=== PATIENT | male | born 1980 | race Caucasian/White ===

== ENCOUNTER 2019-01-27 14:10 | Observation (INO) ==
--- NOTE | 2019-01-27 14:24 | XRay Report ---
XR chest 1V portable CLINICAL HISTORY: Chest Pain dyspnea COMPARISON STUDY: 02/03/2013 FINDINGS: The bones soft tissues and hemidiaphragms are normal. The cardiomediastinal silhouette is n ormal. The lungs are clear. The pulmonary vasculature is normal. IMPRESSION: Negative chest. The above report was generated using voice recognition software. It may contain grammatical, syntax or spelling errors. Electronically signed by: Martín Armstrong M.D. 01/27/2019 2:23 PM
[2019-01-27 14:37] LABS: Partial Thromboplastin Ratio 1.1; Partial Thromboplastin Time 28.7 Seconds (21.0-31.0); Prothrombin Time 10.7 Seconds (9.0-12.0)
[2019-01-27 14:38] LABS: Basophils # (auto) 0.02 K/uL (0-0.2); Basophils % (auto) 0.3 %; Eosinophils # (auto) 0.17 K/uL (0-0.5); Eosinophils % (auto) 2.2 %; Hematocrit (blood only) 36.9 % (42-52); Hemoglobin 12.8 g/dL (14.0-18.0); Immature Granulocytes # (auto) 0.03 K/uL (0.00-0.02); Immature Granulocytes % (auto) 0.4 %; Lymphocytes # (auto) 2.76 K/uL (1.2-3.4); Lymphocytes % (auto) 35.5 %; Mean Corpuscular Hemoglobin 29.9 pg (25-34); Mean Corpuscular Hgb Conc 34.7 g/dL (32-36); Mean Corpuscular Volume 86.2 fL (80-100); Mean Platelet Volume 9.7 fL (7.4-10.4); Monocytes # (auto) 0.64 K/uL (0.11-0.59); Monocytes % (auto) 8.2 %; Neutrophils # (auto) 4.16 K/uL (1.4-6.5); Neutrophils % (auto) 53.4 %; Platelet Count 258 K/uL (130-400); RDW Coefficient of Variation 13.8 % (11.5-14.5); RDW Standard Deviation 43.4 fL (36.4-46.3); Red Blood Count 4.28 M/uL (4.7-6.1); White Blood Count 7.78 K/uL (4.8-10.8)
[2019-01-27 14:44] LABS: Alanine Aminotransferase 39 U/L (12-78); Albumin Level 3.6 gm/dl (3.4-5.0); Aspartate Aminotransferase 36 U/L (15-37); BUN Creatinine Ratio 8.3 (10-20); Blood Urea Nitrogen 11 mg/dl (7-18); Calcium 9.1 mg/dl (8.5-10.1); Carbon Dioxide 27 mmol/L (21-32); Chloride 105 mmol/L (98-107); Est GFR (African American) 79.3; Est GFR (Non-African American) 68.4; Glucose 111 mg/dl (70-99); Lipase 149 U/L (73-393); Potassium 3.1 mmol/L (3.5-5.1); Sodium 141 mmol/L (136-145)
[2019-01-27 14:49] LABS: Alkaline Phosphatase 52 U/L (45-117); Bilirubin,Total 0.7 mg/dl (0.2-1); Creatine Kinase 192 U/L (39-308); Creatine Kinase MB 2.1 ng/ml (0.5-3.6); Globulin 3.7 gm/dl (2.5-4.0); Total Protein 7.3 gm/dl (6.4-8.2); Troponin I < 0.015 ng/ml (0-0.045)
--- NOTE | 2019-01-27 17:58 | History & Physical Report ---
Date of Service January 27, 2019 Assessment & Plan (1) CAD (coronary artery disease): - Concern for acute coronary syndrome - Admit to telemetry for observation - Trend cardiac biomarkers, initial set was negative - EKG reviewed as above - Check 2 D echo - If negative enzymes can consider a stress test tomorrow morning. - PT/OT consulted - Cardiology consulted with history of CAD and 2 stents in the past, follows with [facility] cardiology as an outpt -Upon exam patient had somewhat of a reproducible pain with palpation over the left chest wall, during his visit in 2012 he did have similar presentation where he had rib somatic dysfunction and was treated with OMT which successfully improved his pain after a negative cardiac work-up. 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 History of Present Illness Primary Care Provider: NO PCP This is a 38 yo M with PMHx of CAD, HTN, HLD, hx of NSTEMI in 2011 s/p stents x2, and PCI where one vessel was nonamendable to PCI, obesity with BMI of 40, and current tobacco use who presents with acute onset of chest pain which began at rest. Pt reports it was substernally and left sided pain which moved down into both arms, and up into his neck on bilateral sides. He denies lightheadedness or or dizziness. Patient notes that this does feel similar to previous presentation of heart attack. He currently still smokes approximately 3-5 cigarettes a day, x3 years. Patient has had intermittent periods where he has quit. Patient denies any alcohol consumption. He does not routinely exercise. 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 Allergies Allergy/AdvReac Type Severity Reaction Status Date / Time codeine Allergy CONVULSIONS Verified 01/27/19 15:11 ketorolac Allergy CONVULSIONS Verified 01/27/19 15:11 meperidine Allergy CONVULSIONS; Verified 01/27/19 15:11 PT CAN TAKE MORPHINE Home Medications Home Medications Medication Instructions Recorded Confirmed Type aspirin 81 mg PO QAM 01/27/19 01/27/19 History atorvastatin 40 mg PO QPM 01/27/19 01/27/19 History carvedilol 25 mg PO QAM 01/27/19 01/27/19 History hydrochlorothiazide 25 mg PO QAM 01/27/19 01/27/19 History isosorbide mononitrate 30 mg PO QAM 01/27/19 01/27/19 History levothyroxine 75 mcg PO QAM 01/27/19 01/27/19 History Past Med/Surg History Medical History Tobacco use Morbid obesity with BMI of 40.0-44.9, adult HLD (hyperlipidemia) HTN (hypertension) Hx of non-ST elevation myocardial infarction (NSTEMI) CAD (coronary artery disease) Surgical History Hx of heart artery stent History of heart artery stent Family History Mother Myocardial infarction, Onset Age: 45 Social History Preferred Language: Malay Communication Ability: Effective Beef Boner Required: No Beliefs That Will Affect Care: None Current Living Situation: Family Current Living Situation Comment: and children Other Information That Helps Us Care for You: No Feels Safe at Home: Yes Safety Concerns: Feels Safe At This Time Smoking Status: Current every day smoker Tobacco Type: cigarettes ; Cigarettes Per Day: 1-4/ day ; Do You Dip or Chew Tobacco: No ; Second Hand Exposure: No ; Tobacco Cessation Education Requested by Patient: No Hx Alcohol Use: No Hx Substance Use: No Review of Systems Review of Systems: Constitutional: No fever, sweats or chills Eyes: No diplopia, no worsening or blurred vision ENT: normal hearing, no trouble swallowing Respiratory: No cough, sputum, dyspnea at rest or on exertion Cardiovascular: As per HPI Abdomen: No pain, nausea, vomiting, diarrhea or constipation Musculoskeletal: No joint pain, calf pain, swelling Neurologic: No weakness, numbness/tingling, or balance problems Psychiatric: No anxiety or depression Skin: No rash or itch Physical Exam Physical Exam: General: awake, alert, no apparent distress, obese Head: Normocephalic, atraumatic ENT: PERRL, EOMI, no pharyngeal exudate, mucous membranes moist Chest: +pain is somewhat reproducible when pressing on the left chest wall, clear to auscultation on room air, no adventitious breath sounds Cardiac: Regular rate and rhythm, no murmur, no JVD, normal peripheral pulses, good capillary refill Abdominal: NABS x 4 quadrants, soft, nontender to palpation, no rebound, guarding or tenderness Extremities: Normal inspection, no peripheral edema or erythema, calfs nontender to palpation Psych: Normal mood and affect Neuro: AAO x 3, strength intact bilaterally and related 5/5, no motor deficits, speech is clear, no peripheral sensory deficits Skin: no rash or erythema Results & Data Vital Signs (Past 12 Hours) Vital Signs Temp Pulse Pulse Resp BP BP Pulse Ox 01/27/19 17:15 84 19 96 01/27/19 17:04 97 01/27/19 16:30 72 19 97 01/27/19 16:15 65 16 165/128 H 98 01/27/19 16:00 69 18 164/108 H 97 01/27/19 15:55 80 19 98 01/27/19 15:45 72 20 168/110 H 96 01/27/19 14:45 79 17 172/120 H 92 01/27/19 14:18 36.9 C 85 23 167/118 H 96 Diagnostic Findings XR chest 1V portable CLINICAL HISTORY: Chest Pain dyspnea COMPARISON STUDY: 02/03/2013 FINDINGS: The bones soft tissues and hemidiaphragms are normal. The cardiomediastinal silhouette is normal. The lungs are clear. The pulmonary vasculature is normal. IMPRESSION: Negative chest. ECG Additional Comments: 27-JAN-2019 14:16:34 [facility]-EDSTAT ROUTINE RETRIEVAL Normal sinus rhythm T wave abnormality, consider inferior ischemia T wave abnormality, consider anterolateral ischemia Abnormal ECG When compared with ECG of 03-FEB-2013 15:51, Inverted T waves have replaced nonspecific T wave abnormality in Anterolateral leads Confirmed by Jaret Gavin ([id number]) on 01/27/2019 3:41:29 PM 25mm/s 10mm/mV 150Hz 9.0.9 12SL 241 HD REBECA: 12 Confirmed By: Jaret Gavin Damaris. rate 81 BPM PA interval 152 ms QRS duration 84 ms QT/QTc 348/404 ms P-R-T axes 36 42 -81 Code Status & VTE Plan Code Status Full Code VTE Prophylaxis Plan VTE Prophylaxis will be ordered: No Supervising Physician Co-Signing Physician Notes I personally examined the patient and verified all awad points of history and exam, discussed case, and agree with decision making with Alexys Redman PAC Feeling better now. Had tingling across his chest that radiated to his back, but also jaw and arm pain. Notes this feels very similar to his prior angina. Still smoking. Vitals noted, in general he is awake and alert pleasant no distress. HEENT normocephalic atraumatic mucous membranes moist. Breathing unlabored no accessory muscle use good effort. Skin shows no rashes no pallor or icterus. EKG noted. Chest painconcern on unstable angina. His symptoms are somewhat atypical, but he relates that it is extremely similar to his prior. He has known coronary disease, and continues to smoke. Rule out IA with serial enzymes. Ask car diology for evaluation, given his known coronary disease and symptoms that are reminiscent of his angina rather than simply proceeding to stress test. Tobacco abusecounseled on cessation Uncontrolled hypertensionnitrates for now, likely add ANNA inhibitor if ongoing elevated. Otherwise as above PG Care Time/CCT Total # of Minutes Spent Total Time Spent with Patient: Total time spent is greater than 50% in coordination of care (as documented) at patient's floor/unit and/or counseling patient:
--- NOTE | 2019-01-27 18:53 | Emergency Department Note ---
Entered by Fay Gaytan acting as a scribe for Jaret Hernandez DO History of Present Illness General Chief complaint: Chest Pain Stated complaint: chest pain Source: patient History of Present Illness Provider complaint: chest pain Onset (ago): hour(s) less than 1 Location: chest Radiation: other (right arm) Pain Consistency: + other (episode) Associated symptoms: + other (tingling in chest 2 days ago); no nausea/vomiting Treatments prior to arrival: aspirin (4 baby aspirin) and other (3 doses of Nitroglycerin) The patient is a 38 year old male who presents to the ED with complaints of an episode of chest pain that began less than 1 hour ago. The patient states he was sitting in the car, and not exerting himself when the pain started. The patient states that the pain started in his right arm and then moved into his chest shortly after. The patient states that he felt tingling in his chest 2 days ago. The patient denies nausea and vomiting. Per EMS, the patient was given 3 doses of Nitroglycerin and 4 baby aspirin en route. Home Medications Home Medications Medication Instructions Recorded Confirmed Type aspirin 81 mg PO QAM 01/27/19 01/27/19 History atorvastatin 40 mg PO QPM 01/27/19 01/27/19 History carvedilol 25 mg PO QAM 01/27/19 01/27/19 History hydrochlorothiazide 25 mg PO QAM 01/27/19 01/27/19 History isosorbide mononitrate 30 mg PO QAM 01/27/19 01/27/19 History levothyroxine 75 mcg PO QAM 01/27/19 01/27/19 History amlodipine 10 mg PO DAILY #30 tab 01/28/19 Rx lisinopril 10 mg PO DAILY #30 tab 01/28/19 Rx nitroglycerin 0.4 mg SUBLINGUAL Q5M #30 tab 01/28/19 Rx Allergies Allergy/AdvReac Type Severity Reaction Status Date / Time codeine Allergy CONVULSIONS Verified 01/27/19 15:11 ketorolac Allergy CONVULSIONS Verified 01/27/19 15:11 meperidine Allergy CONVULSIONS; Verified 01/27/19 15:11 PT CAN TAKE MORPHINE Past Med/Surg History Medical History Tobacco use Morbid obesity with BMI of 40.0-44.9, adult HLD (hyperlipidemia) HTN (hypertension) Hx of non-ST elevation myocardial infarction (NSTEMI) CAD (coronary artery disease) Surgical History Hx of heart artery stent History of heart artery stent Family History Mother Myocardial infarction, Onset Age: 45 Social History Preferred Language: Slovak Communication Ability: Effective Auto Service Dispatcher Required: No Beliefs That Will Affect Care: None marital status: Current Living Situation: Family Current Living Situation Comment: and children Feels Safe at Home: Yes Smoking Status: Current every day smoker Tobacco Type: cigarettes ; Cigarettes Per Day: 1-4/ day ; Second Hand Exposure: No ; Hx Alcohol Use: No Hx Substance Use: No Review of Systems See HPI for pertinent positives & negatives. and A total of 10 systems reviewed and were otherwise negative Physical Exam Vital Signs Vital Signs - 24 hr 01/27/19 14:18 01/27/19 14:45 01/27/19 15:45 Temperature 36.9 C Temperature Source Oral Sepsis Recent Fever Within 48 Hours No Sepsis New/Unexplained Change in Mental Status No Sepsis Action Taken by Nursing No Action Required Pulse Rate 85 Pulse Rate [Left Apical] 79 72 Pulse Rate from SpO2 Sensor Pulse Rhythm Regular Pulse Rhythm [Left Apical] Regular Regular Pulse Strength Normal Pulse Strength [Left Apical] Normal Normal Respiratory Rate 23 17 20 Respiratory Effort / Characteristics Non-Labored Spontaneous Non-Labored Spontaneous Non-Labored Spontaneous Respiratory Depth Normal Normal Normal Respiratory Pattern Regular Regular Regular Blood Pressure 167/118 H Blood Pressure [Right Arm] 172/120 H 168/110 H Blood Pressure Mean 134 Blood Pressure Mean [Right Arm] 137 129 Blood Pressure Position Lying Blood Pressure Position [Right Arm] Lying Pulse Oximetry 96 92 96 Oxygen Delivery Method Room Air Room Air Room Air 01/27/19 15:55 01/27/19 16:00 01/27/19 16:15 Temperature Temperature Source Sepsis Recent Fever Within 48 Hours Sepsis New/Unexplained Change in Mental Status Sepsis Action Taken by Nursing Pulse Rate 80 69 65 Pulse Rate [Left Apical] Pulse Rate from SpO2 Sensor 80 70 65 Pulse Rhythm Pulse Rhythm [Left Apical] Pulse Strength Pulse Strength [Left Apical] Respiratory Rate 19 18 16 Respiratory Effort / Characteristics Respiratory Depth Respiratory Pattern Blood Pressure 164/108 H 165/128 H Blood Pressure [Right Arm] Blood Pressure Mean 126 140 Blood Pressure Mean [Right Arm] Blood Pressure Position Blood Pressure Position [Right Arm] Pulse Oximetry 98 97 98 Oxygen Delivery Method 01/27/19 16:30 Temperature Temperature Source Sepsis Recent Fever Within 48 Hours Sepsis New/Unexplained Change in Mental Status Sepsis Action Taken by Nursing Pulse Rate 72 Pulse Rate [Left Apical] Pulse Rate from SpO2 Sensor 75 Pulse Rhythm Pulse Rhythm [Left Apical] Pulse Strength Pulse Strength [Left Apical] Respiratory Rate 19 Respiratory Effort / Characteristics Respiratory Depth Respiratory Pattern Blood Pressure Blood Pressure [Right Arm] Blood Pressure Mean Blood Pressure Mean [Right Arm] Blood Pressure Position Blood Pressure Position [Right Arm] Pulse Oximetry 97 Oxygen Delivery Method GENERAL: Patient is awake, alert, and very anxious appearing. Patient appears to be uncomfortable. EYES: The conjunctivae are clear. The pupils are round and reactive. EARS, NOSE, MOUTH AND THROAT: The nose is without any evidence of any deformity. Mucous membranes are moist.Tongue is midline NECK: The neck is nontender and supple. RESPIRATORY: Normal respiratory effort is noted. There is no evidence of wheezing rhonchi or rales to auscultation. CARDIOVASCULAR: Regular rate and rhythm noted. There no murmurs rubs or gallops normal S1 normal S2 GASTROINTESTINAL: The abdomen is soft. Bowel sounds are present in all quadrants. Abdomen is nontender. MUSCULOSKELETAL/EXTREMITIES: There is no evidence of gross deformity. Full range of motion is noted in the hips and shoulders. SKIN: There is no obvious evidence of any rash. There are no petechiae, pallor or cyanosis noted. NEUROLOGIC: Patient is awake alert and oriented x3. Strength is symmetric. Patellar reflexes are 2+ bilaterally. Course 1411: Past medical records reviewed. The patient was evaluated in room C9. A complete history and physical exam was performed. 1608: I reevaluated the patient and he is feeling much better. I updated him on the test results and plan for admission. 1610: I discussed the patient's case with Eveline Jacobsen [facility]. She will be accepting the patient [facility] They will evaluate the patient for further management. Consultations Consultation #1: I discussed the patient's case with AISHA Ho. She will be accepting the patient for Dr. Ayala [facility]. They will evaluate the patient for further management. Time: 16:10 Administered Medications Aspirin (Ecotrin Ectab) 81 mg PO QAM YENNIFER Stop: 02/27/19 08:59 Last Admin: 01/28/19 08:36 Dose: 81 mg Documented by: [id number] Carvedilol (Coreg) 25 mg PO [facility] Stop: 02/27/19 08:59 Last Admin: 01/28/19 08:35 Dose: 25 mg Documented by: [id number] Hydrochlorothiazide (Hctz) 25 mg PO [facility] Stop: 02/27/19 08:59 Last Admin: 01/28/19 08:37 Dose: 25 mg Documented by: [id number] Isosorbide Mononitrate (Imdur Extended Rel) 30 mg PO [facility] Stop: 02/27/19 08:59 Last Admin: 01/28/19 08:36 Dose: 30 mg Documented by: [id number] Levothyroxine Sodium (Synthroid) 75 mcg PO [facility] Stop: 02/27/19 08:59 Last Admin: 01/28/19 08:36 Dose: 75 mcg Documented by: [id number] Discontinued Medications Atorvastatin Calcium (Lipitor) 40 mg PO QPM [facility] Stop: 02/26/19 20:59 Last Admin: 01/27/19 19:49 Dose: 40 mg Documented by: [id number] Isosorbide Mononitrate (Imdur Extended Rel) 30 mg PO NOW STA Stop: 01/27/19 19:16 Last Admin: 01/27/19 19:49 Dose: 30 mg Documented by: [id number] Lisinopril (Zestril) 10 mg PO NOW ONE Stop: 01/28/19 10:43 Last Admin: 01/28/19 11:38 Dose: 10 mg Documented by: [id number] Metoprolol Tartrate (Lopressor) 5 mg IV NOW STA Stop: 01/28/19 09:58 Last Admin: 01/28/19 10:04 Dose: 5 mg Documented by: [id number] Perflutren Lipid Microsphere (Definity) 2 ml IV ONCE ONE Stop: 01/28/19 06:57 Last Admin: 01/28/19 06:57 Dose: 2 ml Documented by: [id number] Potassium Chloride (Klor-Con M10) 40 meq PO 2030 ONE Stop: 01/27/19 20:31 Last Admin: 01/27/19 21:04 Dose: 40 meq Documented by: [id number] Medical Decision Making Differential Diagnosis Differential diagnosis: Etiologies such as shingles, musculoskeletal pain, pericarditis, myocarditis, cardiac ischemia, pericardial tamponade, pneumonia, pneumothorax, pleural effusi on, hemothorax, pleurisy, aortic pathology, pulmonary embolism, intra-abdominal process, as well as others were considered. Medical Records Attestation: I reviewed the patient's medical records. Home Medications Current Medication List: was personally reviewed by me Laboratory Data Attestation: I reviewed the patient's lab results. Result diagrams: 01/28/19 04:01 01/27/19 13:45 Lab Results 01/27/19 01/27/19 01/27/19 Range/Units 13:45 13:45 13:45 WBC 7.78 (4.8-10.8) K/uL RBC 4.28 L (4.7-6.1) M/uL Hgb 12.8 L (14.0-18.0) g/dL Hct 36.9 L (42-52) % MCV 86.2 (80-100) fL MCH 29.9 (25-34) pg MCHC 34.7 (32-36) g/dL RDW Std Deviation 43.4 (36.4-46.3) fL RDW Coeff of Kylee 13.8 (11.5-14.5) % Plt Count 258 (130-400) K/uL MPV 9.7 (7.4-10.4) fL Immature Gran % (Auto) 0.4 % Neut % (Auto) 53.4 % Lymph % (Auto) 35.5 % [place] % (Auto) 8.2 % Eos % (Auto) 2.2 % Baso % (Auto) 0.3 % Immature Gran # (Auto) 0.03 H (0.00-0.02) K/uL Neut # (Auto) 4.16 (1.4-6.5) K/uL Lymph # (Auto) 2.76 (1.2-3.4) K/uL [place] # (Auto) 0.64 H (0.11-0.59) K/uL Eos # (Auto) 0.17 (0-0.5) K/uL Baso # (Auto) 0.02 (0-0.2) K/uL PT 10.7 (9.0-12.0) Seconds INR 1.0 (0.9-1.1) APTT 28.7 (21.0-31.0) Seconds PTT Ratio 1.1 Sodium 141 (136-145) mmol/L Potassium 3.1 L (3.5-5.1) mmol/L Chloride 105 (98-107) mmol/L Carbon Dioxide 27 (21-32) mmol/L Anion Gap 9.0 (3-11) BUN 11 (7-18) mg/dl Creatinine 1.32 (0.6-1.4) mg/dl Est Cr Clr Drug Dosing Not Reportable Est GFR ( Amer) 79.3 Est GFR (Non-Af Amer) 68.4 BUN/Creatinine Ratio 8.3 L (10-20) Glucose 111 H (70-99) mg/dl Calcium 9.1 (8.5-10.1) mg/dl Total Bilirubin 0.7 (0.2-1) mg/dl AST 36 (15-37) U/L ALT 39 (12-78) U/L Alkaline Phosphatase 52 (45-117) U/L Total Creatine Kinase 192 (39-308) U/L CK-MB (CK-2) 2.1 (0.5-3.6) ng/ml CK/CKMB % Calc 1.1 (0-3.0) Troponin I < 0.015 (0-0.045) ng/ml Total Protein 7.3 (6.4-8.2) gm/dl Albumin 3.6 (3.4-5.0) gm/dl Globulin 3.7 (2.5-4.0) gm/dl Albumin/Globulin Ratio 1.0 (0.9-2) Lipase 149 (73-393) U/L Imaging Data Radiologist's Impression: Radiology results as stated below per my review and the radiologist's interpretation: XR chest 1V portable CLINICAL HISTORY: Chest Pain dyspnea COMPARISON STUDY: 02/03/2013 FINDINGS: The bones soft tissues and hemidiaphragms are normal. The ca rdiomediastinal silhouette is normal. The lungs are clear. The pulmonary vasculature is normal. IMPRESSION: Negative chest. The above report was generated using voice recognition software. It may contain grammatical, syntax or spelling errors. Electronically signed by: Martín Armstrong M.D. 01/27/2019 2:23 PM ECG Data Attestation: I personally reviewed and interpreted this ECG as follows: Indication: chest pain Rate (beats per minute): 81 Rhythm: normal sinus Findings: + T-wave inversion (lateral and inferior); no PAC, no PVC, no ST elevation and no ectopy Comparison ECG Date: from (02/03/2013) Change: no significant change Blood Pressure Blood Pressure Findings: Elevated blood pressure Blood Pressure Disposition: further management by hospitalist JOEY Narrative Patient had a heart score of 4 The patient is a 38-year-old male who presented to the emergency department by ambulance for an evaluation of chest pain. The patient has an abnormal EKG which appears to be very similar to his previous however some ST segment depression could be worsened compared to his previous EKG. The patient was treated with aspirin and nitroglycerin. The patient was reevaluated multiple times. His pain slowly improved. Given the patient's history and risk factors I discussed his case with the on-call [facility] hospitalist group. They have agreed to evaluate the patient in the emergency department for further management disposition. The patient was feeling much better on subsequent reevaluation. Impression & Plan Chest pain, Abnormal EKG Discharge Plan Visit Data *Final* Discharge Date/Time: 01/27/19 18:18 Chief Complaint: Chest Pain Stated Complaint: chest pain ED Provider: Jaret Hernandez Discharge Problem: Chest pain, Abnormal EKG Patient Disposition: Admitted As Inpatient Discharge Instructions Interventions: ED Discharge Assessment Last Done: 01/27/19 18:18 Discharge Problem: Chest pain Qualifiers: Chest pain type: unspecified Qualified Code(s): R07.9 - Chest pain, unspecified The scribe's documentation has been prepared under my direction and personally reviewed by me in its entirety. I confirm that the note above accurately reflects all work, treatment, procedures, and medical decision making performed by me.
[2019-01-27] MEDS ORDERED: NITROGLYCERIN SL 0.4 MG/TAB TAB SL PRN (19:09)
[2019-01-27] MEDS ORDERED: ISOSORBIDE MONO EXTENDED REL 30 MG TABCR PO STA (19:15)
[2019-01-27] MEDS ORDERED: POTASSIUM CHLORIDE 10 MEQ TABCR PO ONE (20:30)
[2019-01-27] MEDS ORDERED: ATORVASTATIN 40 MG TAB PO SCH (21:00)
[2019-01-28 04:14] LABS: Hematocrit (blood only) 38.2 % (42-52); Hemoglobin 12.9 g/dL (14.0-18.0); Mean Corpuscular Hemoglobin 29.9 pg (25-34); Mean Corpuscular Hgb Conc 33.8 g/dL (32-36); Mean Corpuscular Volume 88.6 fL (80-100); Mean Platelet Volume 9.5 fL (7.4-10.4); Platelet Count 197 K/uL (130-400); RDW Coefficient of Variation 13.9 % (11.5-14.5); RDW Standard Deviation 45.4 fL (36.4-46.3); Red Blood Count 4.31 M/uL (4.7-6.1); White Blood Count 6.91 K/uL (4.8-10.8)
[2019-01-28 04:34] LABS: Chol HDL Ratio 6; Cholesterol 168 mg/dl (0-200); HDL Cholesterol 28 mg/dl; LDL Cholesterol Calculated 72 mg/dl; Triglycerides 341 mg/dl (0-150); Troponin I < 0.015 ng/ml (0-0.045); VLDL Cholesterol 68 mg/dl
[2019-01-28] MEDS ORDERED: PERFLUTREN LIPID MICROSPHERE (DEFINITY) IV ONE (06:56)
[2019-01-28 07:27] LABS: Estimated Average Glucose 146 mg/dl; Hemoglobin A1C 6.7 % (4.5-5.6)
--- NOTE | 2019-01-28 08:40 | Cardiology Consultation ---
Date of Consultation January 28, 2019 Assessment & Plan (1) HTN (hypertension): (2) HLD (hyperlipidemia): (3) Chest pain: Patient admitted with an episode of atypical chest pain yesterday. He reports prior history of coronary artery disease with stent placement but per cardiac catheterization at our facility in 2011 there was no evidence of significant coronary disease. He is currently chest pain free and hemodynamically stable. He is well perfused without signs of heart failure. Serial troponins undetectable and EKG without acute changes. Very low suspicion for acute coronary syndrome. Echo is pending. Recommend further risk stratification with dobutamine stress echo which can be done as an outpatient once his blood pressure is controlled. Blood pressure is uncontrolled. Recommend starting lisinopril 10 mg daily. Continue carvedilol and HCTZ. Can further adjust antihypertensives in the outpatient setting. From a cardiology standpoint OK for discharge with followup in our office in 1 week. Supervising Physician Co-Signing Physician Notes Patient was seen and examined on 01/28/2019. Agree with consultation with following additions: Right-sided chest pain that lasted for approximately 1 hour and different than what he describes prior angina. He is currently chest pain-free. No shortness of breath. He would like to go home. Exam notable for: General: No acute distress. Alert and oriented Cardiac: Regular. No murmur. Lungs: Clear to auscultation ECGs personally reviewed: ECG 01/27/2019 at 8:37 p.m.: Sinus rhythm 61 bpm. Inferior and anterior T-wave inversion. ECG 01/27/2019 at 2:16 p.m.: Sinus rhythm 81 bpm. Inferior and anterior T-wave inversion. T-wave abnormality present on 02/03/2013 ECG as well. Echo 01/28/2019: Normal LV size, wall motion, systolic function. EF 55-60%. Moderate to severe concentric LVH. No significant diastolic dysfunction. No significant valvular abnormalities. Normal RVSP. Prior cardiac catheterization report from 2011 reported no significant CAD. He initially reported that he had a stent placed here in 2011 and also prior to that in [place]. ASSESSMENT/PLAN: 1. Atypical chest pain: Right-sided chest pain that lasted 1 hour with negative cardiac enzymes, abnormal ECG which is similar to prior ECGs and without dynamic changes, and no wall motion abnormalities on echo. Symptoms not likely cardiac in etiology. We discussed stress testing however he was significantly hypertensive. Therefore, it is recommended that blood pressure be optimized and can perform outpatient stress testing when blood pressure improved. 2. Hypertension: Agree with initiation of ANNA-inhibitor. Continue carvedilol and HCTZ. Follow up closely as an outpatient with PCP. Can follow up with Cardiology in 1 week to further titrate medications as well and arrange outpatient stress testing if appropriate at that time. Currently asymptomatic. 3. Disposition: Plan of care discussed with primary service. History of Present Illness Reason for Consultation: Chest pain Attending Physician: Immanuel Castellon, DO History of Present Illness Mr. Zavala is a 38 year old male with a medical history significant for hypertension, dyslipidemia, hypothyroidism and tobacco use. Patient is a poor historian. According to him he has a history of coronary artery disease with stent placement at our facility in 2011. However upon further investigation he had a cardiac catheterization here in 2011 which showed no significant CAD. Patient also thought he had a heart catheterization in [place] prior to the one at [facility] but his does not recall this. He does not follow with cardiology as an outpatient. He was admitted yesterday with chest pain. His symptoms developed around noon while sitting in his vehicle. He describes right arm, shoulder and jaw pain, mid thoracic back pain and less significant left sided chest pain. Pain was "jagging" in nature. He had associated shortness of breath. No nausea or diaphoresis. His symptoms lasted for a total of about 45 minutes Reports that symptoms in the past that prompted cardiac catheterization were different included left side chest pressure. Serial cardiac enzymes have been undetectable. EKG without acute changes. His blood pressure has been elevated since admission and he reports is often elevated when checked at his PCP office. He was seen at the bedside and his and children are present. He is feeling well and has no acute complaints. He has not had any recurrent chest pain. No shortness of breath, orthopnea, PND or peripheral edema. No palpitations, lightheadedness, near-syncope or syncope. No abnormal bleeding. No claudication. 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 Family history: Mother with coronary artery bypass surgery in her 50s. Social history: and lives with his in time room. Six children. 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 He smokes about 4 cigarettes per day. No alcohol or illicit drug use. Allergies Allergy/AdvReac Type Severity Reaction Status Date / Time codeine Allergy CONVULSIONS Verified 01/27/19 15:11 ketorolac Allergy CONVULSIONS Verified 01/27/19 15:11 meperidine Allergy CONVULSIONS; Verified 01/27/19 15:11 PT CAN TAKE MORPHINE Home Medications Home Medications Medication Instructions Recorded Confirmed Type aspirin 81 mg PO QAM 01/27/19 01/27/19 History atorvastatin 40 mg PO QPM 01/27/19 01/27/19 History carvedilol 25 mg PO QAM 01/27/19 01/27/19 History hydrochlorothiazide 25 mg PO QAM 01/27/19 01/27/19 History isosorbide mononitrate 30 mg PO QAM 01/27/19 01/27/19 History levothyroxine 75 mcg PO QAM 01/27/19 01/27/19 History amlodipine 10 mg PO DAILY #30 tab 01/28/19 Rx lisinopril 10 mg PO DAILY #30 tab 01/28/19 Rx nitroglycerin 0.4 mg SUBLINGUAL Q5M #30 tab 01/28/19 Rx Patient History Medical History Tobacco use Morbid obesity with BMI of 40.0-44.9, adult HLD (hyperlipidemia) HTN (hypertension) Hx of non-ST elevation myocardial infarction (NSTEMI) CAD (coronary artery disease) Surgical History Hx of heart artery stent History of heart artery stent Family History Mother Myocardial infarction, Onset Age: 45 Social History Preferred Language: Syriac Communication Ability: Effective Zigzag Stitcher Required: No Beliefs That Will Affect Care: None marital status: Current Living Situation: Family Current Living Situation Comment: and children Feels Safe at Home: Yes Smoking Status: Current every day smoker Tobacco Type: cigarettes ; Cigarettes Per Day: 1-4/ day ; Second Hand Exposure: No ; Hx Alcohol Use: No Hx Substance Use: No Review of Systems Review of Systems: All systems reviewed & are unremarkable except as noted in HPI & below Physical Exam Physical Exam: General: No acute distress, comfortable. HEENT: Head is normal. PERRLA. EOMI. Sclerae anicteric. Ears, nose and throat unremarkable. Mucous membranes moist. Neck: Normal carotid upstrokes, no bruits. No appreciable JVD. Lungs: Clear to auscultation bilaterally without rales, rhonchi or wheezes. Cardiac: Regular rate and rhythm. S1-S2 normal. No appreciable murmur, gallop or rub. Abdomen: Soft and nontender. Bowel sounds normal. No mass or organomegaly. No abdominal bruit. Extremities/vascular: Well perfused. No peripheral edema. Radial, DP and PT pulses 2+ bilaterally Skin: No rash or abnormal lesions. Normal turgor. Neurologic: Nonfocal Psychiatric: Affect appropriate. Alert and oriented. Results & Data Vital Signs (Past 12 Hours) Vital Signs Temp Pulse Pulse Resp BP BP Pulse Ox 01/28/19 07:59 56 L 01/28/19 07:35 36.6 C 62 19 184/113 H 180/121 H 97 01/28/19 03:13 36.7 C 70 16 129/81 98 01/27/19 23:31 36.6 C 71 16 135/77 96 Laboratory Results Laboratory Results - last 24 hr 01/27/19 01/27/19 01/27/19 13:45 13:45 13:45 WBC 7.78 RBC 4.28 L Hgb 12.8 L Hct 36.9 L MCV 86.2 MCH 29.9 MCHC 34.7 RDW Std Deviation 43.4 RDW Coeff of Kylee 13.8 Plt Count 258 MPV 9.7 Immature Gran % (Auto) 0.4 Neut % (Auto) 53.4 Lymph % (Auto) 35.5 [place] % (Auto) 8.2 Eos % (Auto) 2.2 Baso % (Auto) 0.3 Immature Gran # (Auto) 0.03 H Neut # (Auto) 4.16 Lymph # (Auto) 2.76 [place] # (Auto) 0.64 H Eos # (Auto) 0.17 Baso # (Auto) 0.02 PT 10.7 INR 1.0 APTT 28.7 PTT Ratio 1.1 Sodium 141 Potassium 3.1 L Chloride 105 Carbon Dioxide 27 Anion Gap 9.0 BUN 11 Creatinine 1.32 Est Cr Clr Drug Dosing Not Reportable Est GFR ( Amer) 79.3 Est GFR (Non-Af Amer) 68.4 BUN/Creatinine Ratio 8.3 L Glucose 111 H Estimat Average Glucose Hemoglobin A1c Calcium 9.1 Total Bilirubin 0.7 AST 36 ALT 39 Alkaline Phosphatase 52 Total Creatine Kinase 192 CK-MB (CK-2) 2.1 CK/CKMB % Calc 1.1 Troponin I < 0.015 Total Protein 7.3 Albumin 3.6 Globulin 3.7 Albumin/Globulin Ratio 1.0 Triglycerides Cholesterol LDL Cholesterol, Calc VLDL Cholesterol, Calc HDL Cholesterol Cholesterol/HDL Ratio Lipase 149 01/27/19 01/28/19 01/28/19 20:05 04:01 04:01 WBC RBC Hgb Hct MCV MCH MCHC RDW Std Deviation RDW Coeff of Kylee Plt Count MPV Immature Gran % (Auto) Neut % (Auto) Lymph % (Auto) [place] % (Auto) Eos % (Auto) Baso % (Auto) Immature Gran # (Auto) Neut # (Auto) Lymph # (Auto) [place] # (Auto) Eos # (Auto) Baso # (Auto) PT INR APTT PTT Ratio Sodium Potassium Chloride Carbon Dioxide Anion Gap BUN Creatinine Est Cr Clr Drug Dosing Est GFR ( Amer) Est GFR (Non-Af Amer) BUN/Creatinine Ratio Glucose Estimat Average Glucose 146 Hemoglobin A1c 6.7 H Calcium Total Bilirubin AST ALT Alkaline Phosphatase Total Creatine Kinase CK-MB (CK-2) CK/CKMB % Calc Troponin I < 0.015 < 0.015 Total Protein Albumin Globulin Albumin/Globulin Ratio Triglycerides 341 H Cholesterol 168 LDL Cholesterol, Calc 72 VLDL Cholesterol, Calc 68 HDL Cholesterol 28 Cholesterol/HDL Ratio 6 Lipase 01/28/19 04:01 WBC 6.91 RBC 4.31 L Hgb 12.9 L Hct 38.2 L MCV 88.6 MCH 29.9 MCHC 33.8 RDW Std Deviation 45.4 RDW Coeff of Kylee 13.9 Plt Count 197 MPV 9.5 Immature Gran % (Auto) Neut % (Auto) Lymph % (Auto) [place] % (Auto) Eos % (Auto) Baso % (Auto) Immature Gran # (Auto) Neut # (Auto) Lymph # (Auto) [place] # (Auto) Eos # (Auto) Baso # (Auto) PT INR APTT PTT Ratio Sodium Potassium Chloride Carbon Dioxide Anion Gap BUN Creatinine Est Cr Clr Drug Dosing Est GFR ( Amer) Est GFR (Non-Af Amer) BUN/Creatinine Ratio Glucose Estimat Average Glucose Hemoglobin A1c Calcium Total Bilirubin AST ALT Alkaline Phosphatase Total Creatine Kinase CK-MB (CK-2) CK/CKMB % Calc Troponin I Total Protein Albumin Globulin Albumin/Globulin Ratio Triglycerides Cholesterol LDL Cholesterol, Calc VLDL Cholesterol, Calc HDL Cholesterol Cholesterol/HDL Ratio Lipase Diagnostic Findings Echo pending ECG Additional Comments: EKGs reviewed-- Sinus rhythm with T wave inversion Telemetry reviewed-- sinus rhythm PG Care Time/CCT Total # of Minutes Spent Total Time Spent with Patient: Total time spent is greater than 50% in coordination of care (as documented) at patient's floor/unit and/or counseling patient: (1) Chest pain Chest pain type: unspecified Qualified Code(s): R07.9 - Chest pain, unspecified
[2019-01-28] MEDS ORDERED: LEVOTHYROXINE SODIUM 75 MCG TABLET PO SCH (09:00)
[2019-01-28] MEDS ORDERED: ASPIRIN 81 MG ECTAB PO SCH (09:00)
[2019-01-28] MEDS ORDERED: CARVEDILOL 25 MG TAB PO SCH (09:00)
[2019-01-28] MEDS ORDERED: ISOSORBIDE MONO EXTENDED REL 30 MG TABCR PO SCH (09:00)
[2019-01-28] MEDS ORDERED: hydroCHLOROthiazide 25 MG TAB PO SCH (09:00)
[2019-01-28] MEDS ORDERED: METOPROLOL TARTRATE 1 MG/ML VIAL IV STA (09:57)
[2019-01-28] MEDS ORDERED: LISINOPRIL 10 MG TAB PO ONE (10:42)
--- NOTE | 2019-01-28 19:30 | Discharge Summary ---
Date of Service January 28, 2019 Admission HPI Per Admitting Provider This is a 38 yo M with PMHx of CAD, HTN, HLD, hx of NSTEMI in 2012 s/p stents x2, and PCI where one vessel was nonamendable to PCI, obesity with BMI of 40, and current tobacco use who presents with acute onset of chest pain which began at rest. Pt reports it was substernally and left sided pain which moved down into both arms, and up into his neck on bilateral sides. He denies lightheadedness or or dizziness. Patient notes that this does feel similar to previous presentation of heart attack. He currently still smokes approximately 3-5 cigarettes a day, x3 years. Patient has had intermittent periods where he has quit. Patient denies any alcohol consumption. He does not routinely exercise. 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 Principal Diagnosis Chest pain Discharge Exam In general he is awake and alert pleasant no distress. HEENT normocephalic atraumatic mucous members moist. Breathing unlabored no accessory muscle use good effort. Skin shows no rashes no pallor or icterus. Discharge Data Allergies Allergy/AdvReac Type Severity Reaction Status Date / Time codeine Allergy CONVULSIONS Verified 01/27/19 15:11 ketorolac Allergy CONVULSIONS Verified 01/27/19 15:11 meperidine Allergy CONVULSIONS; Verified 01/27/19 15:11 PT CAN TAKE MORPHINE Consultations 01/27/19 16:10 ED Decision to Admit Stat 01/27/19 16:58 Consult Cardiology Routine Consult Case Management - Discharge Planning Routine Hospital Course (1) CAD (coronary artery disease): -Presented with fairly atypical chest pain, ruled out for MS by negative enzymes. Given his questionable history of prior coronary disease (see below/cardiology input) a stress echo appeared warranted, but with his markedly uncontrolled hypertension it was not safe to do at this time. With him being utterly asymptomatic and negative enzymes, all were in agreement (including patient and ) that it was safe for him to have this done as an outpatient. -Continue med management/secondary risk reduction, however cardiology was able to find cath report from this facility from years ago that did not show coronary disease. Cardiology will continue to pursue if a cath was done showing coronary disease at a different facility. In the meantime patient will be managed for the coronary disease that he recollects. (2) Hx of non-ST elevation myocardial infarction (NSTEMI): See above (3) HTN (hypertension): -Markedly uncontrolled hypertension -Asymptomatic - notes that in spite of multiple med changes he has been this way for quite a while. Noting ranges exactly what we are seeing now in the 200/130 type pressures. She notes that despite multiple med changes he is never been under good control. -Add amlodipine and lisinopril on top of his current regimenwife notes he has been on these before, but not in combination with his current regimen -Outpatient testing for renal artery stenosis (discussed this with patient and ) -Consideration on whether or not genetically mediated severe hypertension is part of the genetics driving his early family history of coronary disease (discussed if this were the case it would be quite possible that he would require multiple meds for control) -Smoke cessation (discussed that this is a massive accelerator for coronary disease and therefore he must stop, and discussed that nicotine is a vasoc onstrictor and could also be contributing to his blood pressure being harder to control). Family was wholeheartedly in agreement that he needs to quit smoking. (4) HLD (hyperlipidemia): -Continue atorvastatin 40 mg every afternoon (5) Morbid obesity with BMI of 40.0-44.9, adult: -Would greatly benefit from positive lifestyle change. -BMI = 40 (6) Tobacco use: -Cessation discussed multiple times, see above otherwise. (7) Hx of heart artery stent: (8) DVT prophylaxis: -Teds, Lovenox subcu Disposition: Home, close outpatient follow-up. Late addendumto01/29/2019 attempted to call patient to see how he is feeling and follow-up on his blood pressure readings. Unable to reach him. Total Time Total Time Spent Total Time Spent (In Minutes): Greater than 30 Discharge Plan Discharge Items Patient Disposition: Home - Self-Care Reason For Visit: CHEST PAIN Discharge Diagnosis: chest pain Discharge Goals: Decrease discomfort Activity: Resume your previous activity Non-emergency contact: Primary Care Provider and Head Of Quality Call non-emergency contact if: you have any medication questions Follow-up/Referrals: Daniel Howe MD [Physician] - 02/01/19 2:10 pm (Please, follow up at [facility] Cardiology Office with Dr. Thong Howe on ThursdayFebruary 01 at 2:30 pm (arrive 2:10 pm). *The office is located in [address] of [facility]. This is the big building next to this hospital. If you have any questions, call the office at [phone]. Please, take any insurance info/worker's comp info and a photo ID to your appointment. If you don't have it, they can work this out with you when you get it. It is just important that you keep this appointment. Thank you.) Ifeanyi Barnes MD [Primary Care Provider] - 02/04/19 12:30 pm (Please, follow up at [facility] Office with Dr. Ifeanyi Barnes on ThursdayFebruary 04 at 12:50 pm (arrive 12:30 pm). *The office is located in [address] of [facility]. This is the big building next to this [facility] [address]. Please, take any insurance info/worker's comp info and a photo ID to your appointments. ) Diet: Regular Addtl Provider Instructions: Chest pain -Fortunately her chest pain was not a heart attack. Your cardiac enzymes were negative, which is very reassuring that there is no damage or stress on your heart. -The lingering concern would be whether or not the pain was related to angina ("a warning shot for a heart attack") -This will be better sorted out by doing stress testing in the near future, because your blood pressures are quite high right now it would not be safe to proceed with stress testingas long as you continue to not have chest symptoms, this will be safe to be done as an outpatient. We will have things set up for you to follow-up with cardiology in this regard. -In the meantime, take it easy. If you feel any chest pain pressure or shortness of breath, take a nitroglycerin under your tongue. If the nitroglycerin plus rest does not alleviate your chest symptoms and 5 minutes, take a second nitroglycerin. If the second nitroglycerin does not alleviate symptoms within another 5 minutes, then take a third nitroglycerin, chew an aspirin, and call 911. Coronary artery disease -As we discussed, it is quite probable that your very difficult to control high blood pressure is one of the main reasons that you genetically are more prone to coronary disease. However, when people smoke they drastically accelerate the damage to the arteries. Even 1 cigarette a day can be more than enough to keep this problem worsening. It is absolutely paramount that you never smoke again. -Keeping blood pressure and cholesterol under control, in addition to quitting smoking, should do well to protect you from further coronary problems. Hypertension -Your blood pressures are, as you know, quite difficult to control. -As above noted, it is possible to just very difficult to control blood pressure, on a genetic basis, is the main reason for your young age of onset of coronary disease -As we discussed, it is also quite possible that you could have what is called "renal artery stenosis" which drives blood pressure is higher and makes it quite difficult to treatin this respect in the near future we would like to get she set up for testing to evaluate your renal arteries. This will be set up either through cardiology or [facility]. -In the meantime, we need to try to affect better control of your blood pressureto this and we have restarted your amlodipine at 10 mg, and restarted lisinopril at 10 mg. With the lisinopril you will need to have lab work checked (basic metabolic panel) in 1 to 2 weeks to ensure that you tolerate it, however given that you tolerated it well in the past it is not likely to be a problem. Follow your blood pressure readings at home, and at follow-ups bring those readings for review. Ideally check 2-3 times a day at random times. -In addition to above, smoking also squeezes down blood vessels making blood pressure harder to treat. If he quit smoking entirely it will hopefully make things easier for you to keep your blood pressure under control. Prescriptions: New lisinopril 10 mg tablet 10 mg PO DAILY Qty: 30 RF: 0 amlodipine 10 mg tablet 10 mg PO DAILY Qty: 30 RF: 0 nitroglycerin 0.4 mg tablet, sublingual 0.4 mg sublingual Q5M Qty: 30 RF: 0 Continued atorvastatin 40 mg tablet 40 mg PO QPM RF: 0 carvedilol 25 mg tablet 25 mg PO QAM RF: 0 isosorbide mononitrate 30 mg tablet extended release 24 hr 30 mg PO QAM RF: 0 aspirin 81 mg Tablet,Delayed Release (Dr/Ec) 81 mg PO QAM RF: 0 levothyroxine 75 mcg tablet 75 mcg PO QAM RF: 0 hydrochlorothiazide 25 mg tablet 25 mg PO QAM RF: 0 Stand-Alone Forms: Call Back Authorization, [facility]/Other Patient Handouts: Lisinopril Oral tablet, Angina, Amlodipine, Hypertension Kidney Disease, Hypertension Dc, Diabetes Meal Planning Discharge Orders: Discharge Order (Routine); Ordered 01/28/19 Ordered By: Immanuel Castellon Admission Data Admit Date/Time: 01/27/19 16:56 Attending Provider: Immanuel Castellon Admit Provider: Immanuel Castellon Primary Care Provider: Ifeanyi Barnes Other Providers: Immanuel Castellon ; Jaret Gavin Service: Telemetry Other Interventions: Discharge Summary Assessment (RN) Last Done: 01/28/19 17:43 DC Date/Time DO NOT enter until pt leaves facility: 01/28/19 18:10
[2019-01-28] MEDS ORDERED: ATORVASTATIN 40 MG TAB PO SCH (21:00)
[2019-01-29] MEDS ORDERED: LISINOPRIL 10 MG TAB PO SCH (09:00)
== END 2019-01-28 18:10 | disposition home or self-care (01) ==
LOC: 2S 14:10 → ED 14:10 → 2S 18:18